=== PATIENT | male | born 1960 | race Two or more races ===

== ENCOUNTER → 2019-02-25 | Day surgery (SDC) | payer BC ==
[~2019-02-25] MED LIST: ASPIR 8181 MG PO; CRESTOR10 MG PO; FARXIGA PO; GLUCAGON FOR INJ 1 MG VIAL ONE; HYOSCYAMINE SULFATE 0.5 MG/ML INJ ONE; JANUMET 50-1,01 EACH PO; LIDOCAINE HCL 2% LOCAL INJ 5 ML SDV VIAL INJ ONE; PROPOFOL IV EMULSION 10 MG/ML 50 ML VIAL ONE; SYNTHROID75 MCG PO; VIT B12 PO
[2019-02-25 16:10] VITALS: BP 100/72
--- NOTE | 2019-02-25 17:06 | Operative Report ---
DATE OF PROCEDURE: 02/25/2019 SURGEON: Wang Thomson MD PROCEDURE: Colonoscopy and polypectomy. INDICATIONS FOR COLONOSCOPY: Colorectal cancer screening. MEDICATIONS: The patient was done under MAC, please see anesthesiologist's note. PROCEDURE IN DETAIL: With the patient in left lateral decubitus position, a flexible fiberoptic Olympus colonoscope was inserted into the rectum with ease and advanced all the way to the cecum. A minute polyp was hot biopsied from the cecum and polypectomy site was hemoclipped. Minimal diverticulosis was noted in the proximal ascending colon. The rest of the ascending, transverse and descending grossly appeared to be within normal limits. Three polyps were snared from the sigmoid colon and three polyps were hot biopsied from the rectum. The scope was then retroflexed into the distal rectum and small internal hemorrhoids were noted, none of which was actively bleeding. The scope was then straightened out, it was subsequently withdrawn. The patient tolerated the procedure well. IMPRESSION: 1. Cecal polyp, hot biopsied, site hemoclipped. 2. Diverticulosis, proximal ascending colon. 3. Sigmoid colon polyps x3, snared. 4. Rectal polyps x3, hot biopsied. 5. Internal hemorrhoids, none actively bleeding. PLAN: Follow up histology. Initiate high-fiber, low-fat diet. Initiate high-fiber supplement. The patient might benefit from a followup colonoscopy in 3 years. Wang Thomson MD [facility] [place] /[id number] cc: Devante Stroud MD
== END | disposition home or self-care (01) ==
LOC: OR 11:08
PROVIDERS: ATTEND Internal Medicine Gastroenterology
DX: Z12.11 Encounter for screening for malignant neoplasm of colon (principal); D12.0 Benign neoplasm of cecum; D12.5 Benign neoplasm of sigmoid colon; K62.1 Rectal polyp; K57.30 Diverticulosis of large intestine without perforation or abscess without bleeding; K64.8 Other hemorrhoids; R13.10 Dysphagia, unspecified; R10.13 Epigastric pain; E11.9 Type 2 diabetes mellitus without complications; E03.9 Hypothyroidism, unspecified; I10 Essential (primary) hypertension; Z79.82 Long term (current) use of aspirin; Z79.84 Long term (current) use of oral hypoglycemic drugs; Z80.0 Family history of malignant neoplasm of digestive organs
CPT/HCPCS: 36415; 45384; 45385; 82948; J1610; J1980; J2001; J2704; 44391; 45378

== ENCOUNTER 2021-02-22 08:54 | Observation (INO) | payer BC, OTHER ==
[~2021-02-22] VITALS: Ht 172.7 cm; Wt 60.5 kg
[~2021-02-22 08:54] MED LIST changes: -GLUCAGON FOR INJ 1 MG VIAL ONE; -HYOSCYAMINE SULFATE 0.5 MG/ML INJ ONE; -LIDOCAINE HCL 2% LOCAL INJ 5 ML SDV VIAL INJ ONE; -PROPOFOL IV EMULSION 10 MG/ML 50 ML VIAL ONE
[2021-02-22] MEDS ORDERED: FAMOTIDINE 20 MG/2 ML VIAL IV ONE ×2 (09:00→09:45)
[2021-02-22] MEDS ORDERED: ONDANSETRON HCL INJ 2MG/ML 2ML 2 MG/ML VIAL IV PRN ×2 (09:00→10:15)
[2021-02-22] MEDS ORDERED: ASPIRIN 325 MG TAB PO ONE (09:00)
[2021-02-22] MEDS ORDERED: ASPIRIN 81 MG CHEW TAB ONE (09:45)
[2021-02-22] MEDS ORDERED: ONDANSETRON HCL INJ 2MG/ML 2ML 2 MG/ML VIAL ONE (09:45)
[2021-02-22] MEDS ORDERED: ENOXAPARIN SOD INJ 60 MG/0.6 ML SYR SC STA (10:13)
[2021-02-22] MEDS ORDERED: ACETAMINOPHEN 325 MG TAB PO PRN (10:15)
[2021-02-22] MEDS ORDERED: FAMOTIDINE 20 MG TAB PO SCH (10:15)
[2021-02-22] MEDS ORDERED: ENALAPRILAT IV INJ 1.25 MG/ML VIAL IV PRN (10:15)
[2021-02-22] MEDS ORDERED: SODIUM CHLORIDE FLUSH 10 ML SYR INJ PRN (10:15)
[2021-02-22] MEDS ORDERED: DEXTROSE 50% SYRINGE 50 ML IV PRN (10:15)
[2021-02-22] MEDS: INSULIN REGULAR, HUMAN 100 UNIT/1 ML 3ML VIAL SQ SCH ×3 (11:30→20:48)
[2021-02-22 12:43] VITALS: BP 117/80
[2021-02-22 13:07] VITALS: BP 117/80
[2021-02-22] MEDS: FAMOTIDINE 20 MG TAB PO SCH ×2 (13:24→21:22)
[2021-02-22] MEDS ORDERED: ENOXAPARIN SOD INJ 60 MG/0.6 ML SYR SC ONE (14:00)
[2021-02-22 14:33] LABS: CREATINE KINASE 186 IU/L (30-200)
[2021-02-22 16:16] VITALS: BP 119/82
[2021-02-22 20:00] VITALS: BP 117/78
[2021-02-22 21:00] VITALS: BP 117/78
[2021-02-22] MEDS ORDERED: SIMVASTATIN 40 MG TAB PO SCH (21:00)
[2021-02-22] MEDS ORDERED: ZOLPIDEM TARTRATE 5 MG TAB PO PRN (21:00)
[2021-02-22 21:25] LABS: CREATINE KINASE 173 IU/L (30-200)
[2021-02-22 22:06] LABS: BLOOD UREA NITROGEN 16 mg/dL (7-26); BUN/CREATININE RATIO 15 (6-25); CREATININE, SERUM 1.06 mg/dL (0.72-1.25); EST GLOMERULAR FILTRATION RATE > 60 ML/MIN (60-)
[2021-02-22] MEDS: METOPROLOL SUCCINATE 25 MG TAB XL PO SCH (22:15)
[2021-02-22] MEDS ORDERED: IOPAMIDOL 370 MG/ML 200 ML INFUS..BTL INJ ONE (22:46)
[2021-02-22] MEDS ORDERED: SODIUM CHLORIDE 0.9% 100 ML ONE (22:46)
[2021-02-23] VITALS: BP 123/76
[2021-02-23 04:00] VITALS: BP 117/83
[2021-02-23 06:05] LABS: CREATINE KINASE 129 IU/L (30-200)
[2021-02-23 06:25] LABS: CHOL/HDL RATIO 2.9 (3.9-4.7)
[2021-02-23 07:45] VITALS: BP 111/82
[2021-02-23 08:01] VITALS: BP 111/82
[2021-02-23] MEDS: INSULIN REGULAR, HUMAN 100 UNIT/1 ML 3ML VIAL SQ SCH ×3 (08:30→16:50)
[2021-02-23] MEDS ORDERED: ASPIRIN 325 MG TAB EC PO SCH (09:00)
[2021-02-23] MEDS: FAMOTIDINE 20 MG TAB PO SCH (09:14)
[2021-02-23] MEDS: METOPROLOL SUCCINATE 25 MG TAB XL PO SCH (09:14)
[2021-02-23] MEDS ORDERED: CYANOCOBALAMIN 1,000 MCG TAB PO SCH (10:00)
[2021-02-23 10:29] LABS: THYROID STIMULATING HORMONE 3.214 uIU/mL (0.350-4.940)
[2021-02-23 11:32] VITALS: BP 101/69
[2021-02-23] MEDS ORDERED: CYANOCOBALAMIN INJ 1,000 MCG/ML VIAL IM NR (14:00)
[2021-02-23 15:39] VITALS: BP 99/64
[2021-02-23] MEDS ORDERED: SIMVASTATIN 20 MG TAB PO SCH (21:00)
[2021-02-24] MEDS ORDERED: LEVOTHYROXINE SODIUM 75 MCG TAB PO SCH (06:00)
[2021-02-24] MEDS ORDERED: NON-FORMULARY MEDICATION ([Farxiga] 10 MG) PO SCH (09:00)
== END 2021-02-23 18:41 | disposition home or self-care (01) ==
LOC: FSED 09:05 → ERHOLD 10:18 → MED/SURG2 12:51
PROVIDERS: ADMIT Internal Medicine; ATTEND Internal Medicine
DX: R07.89 Other chest pain (principal); E11.9 Type 2 diabetes mellitus without complications; E03.9 Hypothyroidism, unspecified; E78.5 Hyperlipidemia, unspecified; D64.9 Anemia, unspecified; I71.4 Abdominal aortic aneurysm, without rupture; Z20.822 Contact with and (suspected) exposure to COVID-19
CPT/HCPCS: 36415 ×2; 71046; 71275; 80053; 80061; 82270; 82550 ×2; 82553 ×2; 82565; 82607; 82746; 82948 ×2; 83036; 83540; 83880; 84443; 84466; 84484 ×2; 84520; 85025; 85379; 93005; 93306; 99284; G0378 ×2; J1650; J2405; J3420; J7050; Q9967; U0002